=== PATIENT | male | born 1990 | race Caucasian/White ===

== ENCOUNTER 2020-04-09 09:45 | Emergency (ER) | payer BC ==
[~2020-04-09] VITALS: Ht 177.8 cm; Wt 82.0 kg
[2020-04-09] MEDS ORDERED: ONDANSETRON 2MG/ML, 2ML IVPush ONE (10:00)
[2020-04-09] MEDS ORDERED: PLEASE ENTER HEIGHT AND WEIGHT MC SCH (10:00)
[2020-04-09] MEDS: MORPHINE SULFATE 4 MG/ML, 1ML IVPush PRN ×2 (10:00→14:35)
[2020-04-09] MEDS ORDERED: PLEASE ENTER ALLERGIES MC SCH (10:00)
[2020-04-09] MEDS ORDERED: ONDANSETRON 2MG/ML, 2ML ONE (10:02)
[2020-04-09] MEDS ORDERED: MORPHINE SULFATE 4 MG/ML, 1ML ONE ×2 (10:02→14:33)
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
--- NOTE | 2020-04-09 10:58 | NUR ---
PT BACK FROM CT, AWAITING RESULTS. PT REMAINS ON MONITORS, VSS, REMAINS ON 2L O2 VIA NC TO KEEP SAT >90%. PT STATES PAIN LEVEL COMFORTABLE, MEDICATIONS EFFECTIVE. PT REMAINS A&OX4. CONT TO MONITOR.
[2020-04-09] MEDS ORDERED: OMNIPAQUE 350 MG/ML, 100ML BOTTLE ONE (11:17)
--- NOTE | 2020-04-09 11:42 | NUR ---
PT'S C SPINE CLEARED PER ERMD. PT C COLLAR REMOVED, PT LOG ROLLED OFF BACK BOARD. ERMD TO SPEAK WITH PT ABOUT PLAN OF CARE. TLSO BEING REQUESTEDBY THROUGHPUT RN PER ERMD AND SPINE MD RECOMENDATION. PT REMAINS ON MONITORS, VSS. CONT TO MONITOR.
--- NOTE | 2020-04-09 11:55 | NUR ---
PT REFUSING MORE PAIN MEDS CURRENTLY, HOWEVERE EDUCATED THAT HE MAY ASK FOR PAIN MEDS NEEDED AT ANY TIME. PT REMAINS ON MONITORS, VSS. PT'S FRIEND AT BEDSIDE. ERMD TO SEE. CONT TO MONITOR.
--- NOTE | 2020-04-09 12:10 | NUR ---
PT TO BE [facility] ADMIT, PT AWARE OF POC.
[2020-04-09] MEDS ORDERED: PROMETHAZINE 25 MG/ML, 1ML IM PRN (12:30)
[2020-04-09] MEDS ORDERED: DIPHENHYDRAMINE 25 MG CAPSULE PO PRN (12:30)
[2020-04-09] MEDS ORDERED: LIDODERM 5% PATCH TD PRN (12:30)
[2020-04-09] MEDS ORDERED: METHOCARBAMOL 500 MG TABLET PO PRN (12:30)
[2020-04-09] MEDS ORDERED: OXYcodone IR 5MG TABLET PO PRN (12:30)
[2020-04-09] MEDS ORDERED: KETOROLAC 30 MG/1 ML IV PRN (12:30)
[2020-04-09] MEDS ORDERED: ONDANSETRON ODT 4 MG PO PRN (12:30)
[2020-04-09] MEDS ORDERED: GABAPENTIN 300 MG CAPSULE PO PRN (12:30)
[2020-04-09 12:45] LABS: MEAN CORPUSCULAR HGB CONC 33.5 g/dL (33.2-36.2); MEAN CORPUSCULAR VOLUME 89.3 fL (81-97); MEAN PLATELET VOLUME 7.3 fL (7.4-10.4); PLATELET COUNT 197 x10^3/uL (130-400); RED BLOOD COUNT 4.52 x10^6/uL (4.38-5.82); RED CELL DISTRIBUTION WIDTH 12.4 % (9.4-14.8)
[2020-04-09 12:55] LABS: INTERNATIONAL NORMALIZED RATIO 1.16 (0.93-1.1); PROTHROMBIN TIME 12.3 Seconds (9.6-11.5)
[2020-04-09 12:59] LABS: ALANINE AMINOTRANSFERASE 132 U/L (12-78); ANION GAP 7 mmol/L (5-15); CALCIUM 8.1 mg/dL (8.5-10.1); CHLORIDE 106 mmol/L (98-107); CREATININE 0.86 mg/dL (0.7-1.3)
[2020-04-09 13:01] LABS: ALKALINE PHOSPHATASE 42 U/L (45-117); BILIRUBIN,TOTAL 0.9 mg/dL (0.2-1.0); TOTAL PROTEIN 7.4 g/dL (6.4-8.2)
[2020-04-09 13:03] LABS: BASOPHILS # (AUTO) 0.01 x10^3/uL (0-0.1); BASOPHILS % (AUTO) 0 % (0-1); EOSINOPHILS % (AUTO) 0 % (1-7); LYMPHOCYTES # (AUTO) 1.06 x10^3/uL (1-3.4); LYMPHOCYTES % (AUTO) 8 % (22-44); MD SCAN; MONOCYTES # (AUTO) 1.45 x10^3/uL (0.2-0.8); MONOCYTES % (AUTO) 11 % (2-9); NEUTROPHILS # (AUTO) 11.07 x10^3/uL (1.8-6.8); NEUTROPHILS % (AUTO) 81 % (42-75)
--- NOTE | 2020-04-09 13:08 | NUR ---
DR. CORNEJO AT BEDSIDE TO SPEAK WITH PT, PT TO TRANSFER TO [facility] NOW, PT AWARE OF POC. PT REFUSES PAIN MEDICATIONS AT THIS TIME. PT REMAINS ON MONITORS, VSS. CONT TO MONITOR.
--- NOTE | 2020-04-09 13:19 | NUR ---
REPORT GIVEN TO GARRETT COHEN RN AT [facility].
--- NOTE | 2020-04-09 13:29 | NUR ---
REPORT GIVEN TO JOON BAH.
--- NOTE | 2020-04-09 14:45 | NUR ---
BREAK RN. PT RE-MEDICATED FOR PER PER ORDERS PRIOR TO TRANSPORT TO [facility] WITH [facility]. REPORT GIVEN TO [facility] EMS CREW. PT D/C'D TO [facility], HAS ALL OWN BELONGINGS UPON TRANSFER.
[2020-04-09 14:47] VITALS: BP 138/87
[2020-04-10] MEDS ORDERED: POLYETHYLENE GLYCOL 17 GM PACKET PO SCH (09:00)
[2020-04-10] MEDS ORDERED: SENNA/DOCUSATE TABLET PO SCH (09:00)
== END 2020-04-09 14:51 ==
LOC: ED 10:59 → EDIP 11:59 → UNDOADMIN 11:59 → ED 14:45
DX: S22.078A Other fracture of T9-T10 vertebra, initial encounter for closed fracture (principal); S32.018A Other fracture of first lumbar vertebra, initial encounter for closed fracture; M51.27 Other intervertebral disc displacement, lumbosacral region; J98.11 Atelectasis; R51 Headache; R10.9 Unspecified abdominal pain; M54.2 Cervicalgia; V86.56XA Driver of dirt bike or motor/cross bike injured in nontraffic accident, initial encounter; Y93.89 Activity, other specified; Y92.820 Desert as the place of occurrence of the external cause; Y99.8 Other external cause status
CPT/HCPCS: 36415; 70450; 71045; 71260; 72125; 72128; 72131; 74177; 80053; 85025; 85610; 96374; 96375; 96376; 99285; J2270; J2405; Q9967